=== PATIENT | male | born 1950 | race Caucasian/White ===

== ENCOUNTER 2019-03-17 09:19 | Inpatient (IN) ==
--- NOTE | 2019-03-17 09:34 | PROVIDER DOCUMENTATION ---
HPI-General Adult - General Chief Complaint: Rib Pain Stated Complaint: PAIN Time Seen by Provider: 03/17/19 09:22 Source: patient Allergies/Adverse Reactions: Patient Allergies Allergy/AdvReac Type Severity Reaction Status Date / Time No Known Allergies Allergy Verified 03/17/19 09:32 Home Medications: Home Medication List Medication Instructions Recorded Confirmed Last Taken Type Apixaban [Eliquis] 5 mg PO BID 03/17/19 03/17/19 Unknown History Benazepril/Hydrochlorothiazide 1 ea PO DAILY 03/17/19 03/17/19 Unknown History [Lotensin Hct 10-12.5 mg Tablet] Hydroxyurea 500 mg PO DAILY 03/17/19 03/17/19 Unknown History - History of Present Illness -Gen Adult Nature of Presenting Problems: Pt. is 69 yom that presents with c/o Left side rib pain that began on Saturday. He reports recently being on flight from [place] to [place]. He denies any injury but reports a mild intermittent cough. He states the pain is sharp and hurts to move or lie down. He denies any other complaints. Location of Pain/Injury: reports: chest (Left rib pain). denies: none, head, face, mouth, neck, upper extremity, hand(s), abdomen, back, pelvis, genitalia, lower extremity, feet, upper body, lower body, generalized, other Pain Radiation: reports: no radiation. denies: arm(s), back, buttocks, chest, epigastric, feet, groin, jaw, flank (L), legs (lower), LLQ, LUQ, neck, periumbilical, flank (R), RLQ, RUQ, shoulder(s), scapula, scrotal, sternal notch, suprapubic, legs (upper), urethral, vaginal, other Quality of Pain: reports: sharp, stabbing. denies: burning, pressure, tightness Severity: reports: moderate. denies: mild, severe Onset/Duration: reports: gradual, 3 days ago Timing: reports: still present, intermittent. denies: improving, constant, getting worse Context/Activities at Onset: reports: none. denies: light activity, moderate activity, vigorous activity, recent emotional stress, recent physical stress, recent trauma history, possible bad food, cold exposure, eating, out of country travel, rest, sleep, sexual activity, other Modifying Factors: improves with: immobilization. worse with: breathing, coughing, movement, palpation Associated Symptoms: reports: pain with inspiration. denies: denies symptoms, anxiety, arm pain, back/neck pain, chest pain, constipation, cough, diaphoresis, diarrhea, dizziness, EENT symptoms, fatigue, fever/chills, genitourinary problems, headaches, heartburn, joint pain, loss of appetite, malaise, muscle aches, sinus congestion/drainage, nausea, rash, seizure, shortness of breath, sensory/motor loss, swelling/mass in abdomen, syncope, vomiting, weakness, trouble walking, other Similar Symptoms Previously?: Yes Recently seen or treated by another doctor?: No Review of Systems - Adult - REVIEW OF SYSTEMS - ADULT Constitutional: reports: no symptoms reported Eyes: reports: no symptoms reported Ears, Nose, Mouth & Throat: reports: no symptoms reported Cardiovascular: reports: no symptoms reported Respiratory: reports: see HPI, cough, pleurisy. denies: chronic cough, dyspnea on exertion, shortness of breath Gastrointestinal: reports: no symptoms reported Genitourinary: reports: no symptoms reported Musculoskeletal: reports: no symptoms reported Integumentary: reports: no symptoms reported Neurological: reports: no symptoms reported Psychiatric: reports: no symptoms reported Past History - Adult - PAST MEDICAL HISTORY-ADULT Review of Records: reports: Old Records Reviewed, Nursing Assessment Review, Medications Reviewed, Social history reviewed & non-contributory. Major Childhood Illnesses: reports: denies history - PRIOR SURGERIES/PROCEDURES Surgical/Procedure History: reports: none - IMMUNIZATION STATUS Childhood Immunizations: See Nurse Assessment Flu Vaccine: See Nurse Assessment - FAMILY HISTORY Family History: reviewed, not pertinent - SOCIAL HISTORY Smoking: quit greater than 1 year Physical Exam-General - PHYSICAL EXAM-ADULT Initial Vital Signs Reviewed: Yes - CONSTITUTIONAL General Appearance: alert, no apparent distress, thin. negative: anxious, slow to respond, obtunded, combative - EYES Eyes: PERRL/EOMI, pink conjunctivae - HEAD, EARS, NOSE, MOUTH & THROAT HENMT: normocephalic/atraumatic, moist mucous membranes - NECK Neck: non-tender, full range of motion, supple, normal inspection - RESPIRATORY Respiratory: lungs clear, normal breath sounds, pain on inspiration. negative: crackles, rales, rhonchi, stridor, wheezing - CARDIOVASCULAR Cardiovascular: normal peripheral pulses, regular rate, rhythm - GASTROINTESTINAL (ABDOMEN) Abdominal Exam: normal bowel sounds, non tender, soft - LYMPHATIC Lymphatic: no adenopathy - MUSCULOSKELETAL Back Exam: normal inspection, no CVA tenderness, no vertebral tenderness Extremity: normal range of motion, non-tender, normal gait, normal inspection Peripheral Pulses: radial (R): 2+, radial (L): 2+ - SKIN Integumentary: normal color, normal turgor, warm/dry - NEUROLOGIC Neurologic: grossly normal, no motor/sensory deficits - PSYCHIATRIC Psych/Mental Status: normal mood/affect, normal thought content, normal thought process, oriented x 3. negative: anxious, paranoid, tearful Progress - PLAN OF CARE/RESULTS Progress/Plan/Lab Results: Vital Signs - 8 hr 03/17/19 09:25 Temperature 97.6 F Pulse Rate 117 H Respiratory Rate 19 Blood Pressure 128/87 O2 Sat by Pulse Oximetry 96 Orders Category Date Time Status RIBS UNILAT W/PA CHEST LEFT [RAD] Stat Exams 03/17/19 09:30 Ordered CBC WITH ELECTRONIC DIFF [HEME] Stat Lab 03/17/19 09:29 Uncollected CK PROFILE [SP CHEM] Stat Lab 03/17/19 09:29 Uncollected COMPREHENSIVE METABOLIC PANEL [CHEM] Stat Lab 03/17/19 09:29 Uncollected TROPONIN T Stat Lab 03/17/19 09:29 Uncollected EKG [EKG] Stat Ther 03/17/19 09:29 Ordered Result Diagrams: 03/17/19 09:38 03/17/19 09:38 - EKG 1 Time of EKG reading by physician:: 10:26 EKG Read and Signed by:: Wan Centeno EKG Interpretation (*Must complete 3 of following elements*): Abnormal Rate: 109 Rhythm: Sinus tach - XRAY 1 XRAY: Left XRAY Study: Chest ([facility] - [address] , [address] [address] [facility] - [address] [place] [address] Department of Imaging Patient: ETHEL BLOCK JR IRAADM Date: 03/17/19MR#: [id number] : 9ADM Status: REG ERAcct#: [id number] Age/Sex: 69/MRoom/Bed: Loc: ED Ordering Physician: Remy Coyle Family Physician: KRISTIE ROSS Reason for Procedure: left rib pain Signed RIBS UNILAT W/PA CHEST LEFT - 03/17/2019 INDICATION: left rib pain TECHNIQUE: Five views COMPARISON: 06/18/2018 FINDINGS: There is a small focal infiltrate or area of scarring in the right upper lobe that is new from prior. The left-sided ribs are intact and normally mineralized. IMPRESSION: Left sided ribs are intact. Small focal infiltrate or area of scarring in the right lung apex new from prior exams. Electronically signed by Andrew Garnett 03/17/2019 10:10 AM 03/17/19 1010 Interpreting Physician: Andrew Garnett MD Dictated Date/Time: 03/17/19 1008 cc: Remy Coyle; KRISTIE ROSS), Ribs XRAY Interpretation: See note - CONSULTS/PCP/HOSPITALIST Notification #1 *Consult/PCP/Hospitalist*: Alondra Yeh Time Discussed: 11:42 Reason/Comments: Admission Consult Disposition: Will see in ED, Admit Departure - Departure Date of Disposition Decision: 03/17/19 Time of Disposition Decision: 10:44 DIAGNOSIS: Hyponatremia, Hyperglycemia Pneumonia Qualifiers: Pneumonia type: due to unspecified organism Laterality: unspecified laterality Lung location: unspecified part of lung Qualified Code(s): J18.9 - Pneumonia, unspecified organism Leukocytosis Qualifiers: Leukocytosis type: unspecified Qualified Code(s): D72.829 - Elevated white blood cell count, unspecified Disposition: ADMITTED INPATIENT 09 Certified Medical Emergency: Emergent Condition: Stable Referrals and Follow-Ups: VANDANA,KRISTIE L., FORENSIC PATHOLOGIST [Primary Care Provider] - - Critical Care Note This patient required my direct & personal management of CC.: No Attestation - Physician/ PAOLA Attestation Patient care was provided by Advanced Practice Provider:: Yes Advanced Practice Provider:: Remy Coyle Advanced Practice Provider documentation review:: The Mid-level provider documentation, treatment plan and medical decision making was reviewed by the physician who agrees with all treatment and medical decision making by the MLP. The physician spent face to face time with patient:: No Advanced Practice Provider documentation review:: Supervising physician onsite and consulted in the evaluation and care of this patient. The physician did not have a face to face encounter with the patient.
[2019-03-17 09:55] LABS: BASO# 0.06 X1000 (0.0-0.2); BASO% 0.4 % (0.0-0.8); EOS# 0.08 X1000 (0.0-0.7); EOS% 0.5 % (0.0-10.0); HEMATOCRIT 42.6 % (42.0-52.0); HEMOGLOBIN 13.6 g/dL (14.0-18.0); IMM GRAN# 0.14 X1000 (0.0-0.04); IMM GRAN% 0.8 % (0.0-0.5); LYMPH# 1.67 X1000 (1.2-3.4); MCH 29.4 PG (27-31); MCHC 31.9 g/dL (33-37); MCV 92.2 FL (81-99); MONO# 2.31 X1000 (0.11-0.59); MONO% 13.9 % (1.7-9.3); MPV 9.1 FL (7.4-10.4); NEUT# 12.38 X1000 (1.4-6.5); NEUT% 74.4 % (42.2-75.2); PLT 556 X1000 (130-400); RBC 4.62 XMIL (4.7-6.1); RDW 15.7 % (11.5-14.5); WBC 16.64 X1000 (4.8-10.8)
--- NOTE | 2019-03-17 10:12 | Diag Imaging Result Doc PS360 ---
RIBS UNILAT W/PA CHEST LEFT - 03/17/2019 INDICATION: left rib pain TECHNIQUE: Five views COMPARISON: 06/18/2018 FINDINGS: There is a small focal infiltrate or area of scarring in the right upper lobe that is new from prior. The left-sided ribs are intact and normally mineralized. IMPRESSION: Left sided ribs are intact. Small focal infiltrate or area of scarring in the right lung apex new from prior exams. Electronically signed by Andrew Garnett 03/17/2019 10:10 AM
--- NOTE | 2019-03-17 10:23 | EKG Report ---
Test Performed on : 03/17/2019 09:54:00 AM Test Reason : RIB PAIN Blood Pressure : / mmHG Vent. Rate : 109 BPM Atrial Rate : 109 BPM P-R Int : 154 ms QRS Dur : 068 ms QT Int : 326 ms P-R-T Axes : 070 048 054 degrees QTc Int : 439 [address]. Junctional [address] depression, probably normal Borderline ECG When compared with ECG of 24-SEP-2017 09:10, Criteria for Septal infarct are no longer present Unconfirmed Result
[2019-03-17 10:31] LABS: ESTIMATED GFR > 60
[2019-03-17] MEDS ORDERED: ROCEPHIN 1 GM in NS 50 ML IV ONE (10:33)
[2019-03-17 10:39] LABS: AGAP 16; ALB/GLOB RATIO 1.2; ALBUMIN 3.9 g/dL (3.5-5.0); ALKALINE PHOSPHATASE 133 U/L (32-122); BUN 6 mg/dL (8-22); CALCIUM 9.4 mg/dL (8.8-10.2); CHLORIDE 89 mmol/L (98-107); CK PROFILE 26 U/L (24-204); COSMO 261; CREATININE 0.9 mg/dL (0.7-1.2); GLUCOSE 149 mg/dL (70-104); GOT 19 U/L (10-34); GPT 8 U/L (10-44); POTASSIUM 3.9 mmol/L (3.5-5.1); SODIUM 130 mmol/L (136-145); TCO2 25 mmol/L (25-35); TOTAL BILIRUBIN 0.81 mg/dL (0.20-1.00); TOTAL PROTEIN 7.2 g/dL (6.3-8.3)
[2019-03-17] MEDS ORDERED: ZITHROMAX 500 MG/NS 500 MG/250 ML IVPB IV ONE (10:45)
[2019-03-17 10:57] LABS: INR 1.41; PROTIME 17.5 Seconds (11.0-16.0)
[2019-03-17 10:58] LABS: PTT 35.6 Seconds (22.3-41.8)
[2019-03-17 11:12] LABS: URINE SOURCE CLEAN CATCH
[2019-03-17 11:17] LABS: BILIRUBIN URINE NEGATIVE (NEGATIVE); BLOOD URINE NEGATIVE (NEGATIVE); COLOR YELLOW; GLUCOSE URINE NEGATIVE (NEGATIVE); KETONE URINE TRACE mg/dL (NEGATIVE); LEUKOCYTES URINE NEGATIVE (NEGATIVE); NITRITE URINE NEGATIVE (NEGATIVE); PROTEIN URINE TRACE mg/dL (NEGATIVE); SP GRAVITY URINE 1.018; TURBIDITY URINE CLEAR (CLEAR); UROBILINOGEN URINE NORMAL (NORMAL)
[2019-03-17 11:19] LABS: UR EPITHELIAL CELLS <10 /HPF (<10); URINE BACTERIA NEGATIVE /HPF; URINE RBC <10 /HPF (<10); URINE WBC <10 /HPF (<10)
--- NOTE | 2019-03-17 11:34 | ED EKG INTERP ---
This chart was entered by Brayden Amos Scribe, acting as scribe for Wan Centeno MD. EKG Interpretation - EKG Time of EKG reading by physician:: 10:00 EKG Read and Signed by:: Wan Centeno EKG Interpretation (*Must complete 3 of following elements*): Abnormal Rate: 109 Rhythm: sinus tachycardia ST Wave: non-specific ST changes Attestation - Physician/ PAOLA Attestation Patient care was provided by Advanced Practice Provider:: No The physician spent face to face time with patient:: Yes Advanced Practice Provider documentation review:: Supervising physician onsite and consulted in the evaluation and care of this patient. The physician did have a face to face encounter with the patient. This chart was documented by the indicated scribe, (Brayden Amos Scribe) and accurately reflects the services I performed and decisions made by Taryn mariano Kent A., MD, as attested by the provider's signature.
[2019-03-17] MEDS: NS 1,000 ML IV SCH (14:55)
[2019-03-17] MEDS: DUONEB (A & A) INH SCH ×3 (15:45→23:18)
--- NOTE | 2019-03-17 19:39 | HISTORY AND PHYSICAL ---
PRIMARY CARE PROVIDER: MUKESH Malone. CHIEF COMPLAINT: Of left-sided rib pain, a cough since he took a flight from [place] to [place] recently. HISTORY OF PRESENTING ILLNESS: This is a 69-year-old male who is sitting up in the bed in presents to [facility] stating that he has had left rib pain that began Saturday. Also has noted a mild cough that is intermittent. States the pain is sharp and hurts to move or lie down. States he took a recent flight from [place] to [place] a couple weeks ago and that there was a passenger sitting next to him that was coughing and sneezing frequently throughout the flight. When he arrived to the emergency room his laboratory data showed a white blood cell count of 16.64, his sodium was 130, plasma lactate was 1.8, a left ribs with PA chest showed left-sided ribs were intact but small focal infiltrate or area of scarring on the right lung apex was new from a prior exam so he will be admitted for further evaluation and treatment. PAST MEDICAL HISTORY: Hypertension and a blood disorder. PAST SURGICAL HISTORY: Hernia repair. FAMILY HISTORY: Reviewed and noncontributory. SOCIAL HISTORY: Currently lives with family, is a former smoker. Drinks 1 to 2 beers daily and denies any illicit drug use. ALLERGIES: He has no known drug allergies. HOME MEDICATIONS: He takes Eliquis 5 mg p.o. b.i.d., Lotensin/hydrochlorothiazide 10/12.5 one p.o. daily and hydroxyurea 500 mg p.o. daily. LABORATORY DATA: Showed a white blood cell count of 16.64, hemoglobin 13.6, hematocrit 42.6, platelets 556,000, PT and INR of 17.5 and 1.41. Sodium 130, potassium 3.9, chloride 89, CO2 25, BUN of 6, creatinine 0.9, glucose 149. Cardiac enzyme was negative. Plasma lactate of 1.8. Urinalysis was negative. A rib with PA chest left showed left-sided ribs are intact. A small focal infiltrate or area of scarring in the right lung apex was new from prior exam. EKG showed a sinus tachycardia at 109. REVIEW OF SYSTEMS: He denied any fever, chills, blurred vision, dizziness, chest pain. He did have a mild cough, left-sided rib pain. Denied any abdominal pain, constipation, diarrhea, burning or hurting with urination. PHYSICAL EXAMINATION: On arrival he had a temperature of 97.6 degrees, pulse 117, respirations 19, blood pressure 128/87, saturating 96% on room air. GENERAL: This is a 69-year-old male who is sitting up in the bed and answers questions appropriately. HEENT: Normocephalic, atraumatic. Normal ENT inspection. Oropharynx and nares are clear. Pupils are equal, round, reactive to light, accommodation. Extraocular movements are intact. NECK: Normal inspection, normal range of motion. LUNGS: With decreased breath sounds to bilateral lower bases. Equal lung expansion, chest wall movement noted. There is some pain to palpation on the left side of his ribs. HEART: Regular rate and rhythm. No murmurs, rubs, or gallops. ABDOMEN: Soft, nontender, nondistended. Bowel sounds are present x4 quadrants. MUSCULOSKELETAL: He had 5/5 strength x4 extremities. NEUROLOGICAL: Cranial nerves 2-12 appear grossly intact. ASSESSMENT: 1. A right lower lobe pneumonia. 2. Leukocytosis. 3. Left-sided rib pain . 4. Hyponatremia. PLAN: He will be admitted to the medical unit placed on telemetry, O2 per protocol, incentive spirometry, DuoNeb q.4 hours. Continue his home medications. Place on normal saline at 75 mL an hour, Rocephin 1 gram IV q.24, azithromycin 500 IV q.24, recheck CBC, BMP in the a.m. Blood cultures x2 are pending and further orders after seen by attending. Dictated by MUKESH Guerrier for Chencho Yeh MD cc: MUKESH Malone MD
[2019-03-17] MEDS: ELIQUIS PO SCH (20:45)
[2019-03-17] MEDS ORDERED: TYLENOL PO PRN (23:32)
[2019-03-17] MEDS ORDERED: ZOFRAN IV PRN (23:32)
[2019-03-18] MEDS: DUONEB (A & A) INH SCH ×5 (03:39→21:31)
[2019-03-18] MEDS: NS 1,000 ML IV SCH ×2 (04:33→22:57)
--- NOTE | 2019-03-18 06:23 | HISTORY AND PHYSICAL ---
ADDENDUM: Briefly, this is a 69-year-old male presenting with shortness of breath and chest discomfort[place] [address], right lower lobe pneumonia. We will treat him with empiric antibiotics and follow closely. Breathing treatments, pulmonary toilet, and monitor. cc: Chencho Yeh MD
[2019-03-18] MEDS ORDERED: HYDROCHLOROTHIAZIDE PO SCH (09:00)
[2019-03-18] MEDS: HYDREA PO SCH (09:03)
[2019-03-18] MEDS: LOTENSIN PO SCH (09:04)
[2019-03-18] MEDS: ELIQUIS PO SCH ×2 (09:04→22:00)
[2019-03-18 09:11] LABS: BASO# 0.05 X1000 (0.0-0.2); BASO% 0.3 % (0.0-0.8); EOS# 0.08 X1000 (0.0-0.7); EOS% 0.5 % (0.0-10.0); HEMATOCRIT 38.4 % (42.0-52.0); HEMOGLOBIN 12.1 g/dL (14.0-18.0); IMM GRAN# 0.16 X1000 (0.0-0.04); LYMPH# 1.32 X1000 (1.2-3.4); LYMPH% 8.2 % (20.5-51.1); MCH 29.2 PG (27-31); MCHC 31.5 g/dL (33-37); MCV 92.5 FL (81-99); MONO# 1.67 X1000 (0.11-0.59); MONO% 10.3 % (1.7-9.3); MPV 9.1 FL (7.4-10.4); NEUT# 12.88 X1000 (1.4-6.5); NEUT% 79.7 % (42.2-75.2); PLT 635 X1000 (130-400); RBC 4.15 XMIL (4.7-6.1); RDW 15.7 % (11.5-14.5); WBC 16.16 X1000 (4.8-10.8)
[2019-03-18 09:37] LABS: AGAP 16; BUN 5 mg/dL (8-22); CALCIUM 8.7 mg/dL (8.8-10.2); CHLORIDE 92 mmol/L (98-107); COSMO 261; CREATININE 0.6 mg/dL (0.7-1.2); ESTIMATED GFR > 60; GLUCOSE 114 mg/dL (70-104); POTASSIUM 3.6 mmol/L (3.5-5.1); SODIUM 131 mmol/L (136-145); TCO2 23 mmol/L (25-35)
[2019-03-18] MEDS: ROCEPHIN 1 GM in NS 50 ML IV SCH (11:33)
[2019-03-18] MEDS: ZITHROMAX 500 MG/NS 500 MG/250 ML IVPB IV SCH (12:50)
--- NOTE | 2019-03-18 18:38 | PROGRESS NOTE ---
DATE: 03/18/2019 SUBJECTIVE: Patient has no major complaints. OBJECTIVE: Vital signs: Blood pressure 110/63, heart rate of 113, respiratory rate of 18, temperature 98.4 degrees, 96% on room air. Cardiovascular: Regular rate and rhythm. Pulmonary: Bilateral breath sounds clear to auscultation. Gastrointestinal: Soft, nontender, nondistended. Bowel sounds are positive. Extremity Exam: No clubbing or cyanosis. Lymphatic exam: No peripheral edema. Neurological Exam: Nonfocal. LABORATORY DATA: White count is still 16,000, hemoglobin and hematocrit 12 and 38, platelets 635,000. Basic was normal. Sodium still a little bit low at 131. PROBLEM LIST: 1. Right lower lobe pneumonia. This was actually just seen on rib films, not even a dedicated PA and lateral. Currently on Rocephin and azithromycin, but white count has not budged, so I am going to get a CT scan of the chest. We may need to adjust medications otherwise. Now patient is on Hydrea, which I am wondering if he has CLL. His white counts have been high before, 14,000, so I am not entirely sure what is causing that. 2. Hyponatremia. That seems to be a little bit better. We will check urine electrolytes. Actually, it really has not changed that much, but it is probably due to hydrochlorothiazide. We will stop that and check urine lytes and follow. DISPOSITION: Pending clinical status. He would like to go home tomorrow if things stabilize. cc: Chencho Yeh MD
--- NOTE | 2019-03-18 21:24 | Diag Imaging Result Doc PS360 ---
EXAM: CT THORAX W/CONTRAST 03/18/2019 HISTORY: pneumonia TECHNIQUE: This exam was performed using automated exposure control, adjustment of mA or kV according to patient size, and/or use of iterative reconstruction technique. COMMENT: There are no previous studies. The aorta is not distended and there is no evidence of dissection. There are no filling defects in the pulmonary arteries. There is no evidence of significant adenopathy. There are calcifications in the left coronary artery. There is a small amount of fluid in the posterior costophrenic sulci bilaterally. There is minimal atelectasis in the left lower lobe posterior costophrenic sulcus and somewhat more atelectasis on the right side. There is also apparent compressive atelectasis in the right middle lobe. There is an ill-defined pleural-based opacity laterally in the left upper lobe around image 51. There is a cavitary lesion in the right apex measuring 2.1 cm in diameter. This is associated with some fibrotic appearing opacities extending inferiorly and towards the apical pleura. There are small stones layering dependently in the gallbladder. There are some degenerative disc changes in the thoracic spine. There is no evidence of acute bony abnormality. IMPRESSION: Possible minimal pneumonia in the left upper lobe inferiorly laterally. 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 This may represent a granulomatous cavity, however the possibility of neoplasm cannot be excluded and comparison with previous studies is recommended. Electronically signed by Andrew Nelson 03/18/2019 9:21 PM
[2019-03-19] MEDS: NS 1,000 ML IV SCH (04:16)
[2019-03-19 07:25] LABS: BASO# 0.08 X1000 (0.0-0.2); BASO% 0.8 % (0.0-0.8); EOS# 0.44 X1000 (0.0-0.7); EOS% 4.2 % (0.0-10.0); HEMATOCRIT 34.3 % (42.0-52.0); HEMOGLOBIN 10.7 g/dL (14.0-18.0); IMM GRAN# 0.13 X1000 (0.0-0.04); IMM GRAN% 1.2 % (0.0-0.5); LYMPH# 1.19 X1000 (1.2-3.4); LYMPH% 11.4 % (20.5-51.1); MCH 28.9 PG (27-31); MCHC 31.2 g/dL (33-37); MCV 92.7 FL (81-99); MONO# 1.54 X1000 (0.11-0.59); MONO% 14.7 % (1.7-9.3); MPV 8.7 FL (7.4-10.4); NEUT% 67.7 % (42.2-75.2); PLT 687 X1000 (130-400); RDW 15.8 % (11.5-14.5); WBC 10.48 X1000 (4.8-10.8)
[2019-03-19 07:38] LABS: AGAP 12; BUN 3 mg/dL (8-22); CALCIUM 8.4 mg/dL (8.8-10.2); CHLORIDE 97 mmol/L (98-107); COSMO 265; CREATININE 0.5 mg/dL (0.7-1.2); ESTIMATED GFR > 60; GLUCOSE 104 mg/dL (70-104); POTASSIUM 3.6 mmol/L (3.5-5.1); SODIUM 134 mmol/L (136-145); TCO2 25 mmol/L (25-35)
[2019-03-19] MEDS: HYDREA PO SCH (08:33)
[2019-03-19] MEDS: ELIQUIS PO SCH ×2 (08:33→21:15)
[2019-03-19] MEDS: LOTENSIN PO SCH (08:33)
[2019-03-19] MEDS: DUONEB (A & A) INH SCH (10:06)
[2019-03-19] MEDS: ROCEPHIN 1 GM in NS 50 ML IV SCH (11:15)
[2019-03-19] MEDS: ZITHROMAX 500 MG/NS 500 MG/250 ML IVPB IV SCH (12:37)
[2019-03-19] MEDS ORDERED: NS NEB INH SCH (14:45)
[2019-03-19] MEDS: ATROVENT NEB INH SCH ×2 (16:17→22:57)
[2019-03-19] MEDS: XOPENEX NEB INH SCH ×2 (16:18→22:58)
--- NOTE | 2019-03-19 17:28 | PROGRESS NOTE ---
DATE: 03/19/2019 SUBJECTIVE: Patient has no major complaints. He really just wants to go home. OBJECTIVE: Vital Signs: Blood pressure 111/68, heart rate of 107, respiratory rate 18, temperature 98.3 degrees, and oxygen saturation is 96% on room air. Cardiovascular: Regular rate and rhythm. Pulmonary: Bilateral breath sounds, clear to auscultation. Gastrointestinal: Soft, nontender, nondistended. Bowel sounds are positive. He seems to be breathing okay. LABORATORY DATA: White count is down to 10, hemoglobin and hematocrit are 10 and 34, platelets 687,000. Basic looked okay. PROBLEM LIST: 1. Right lower lobe pneumonia. This is just seen on plain films. CT though shows a little bit of possible pneumonia, but he has got a cavitary lesion in his right upper lobe, which is unknown. He does not know anything about it. He reports no history of tuberculosis. I am not sure if this is MAC or something else. We will get a pulmonary consult and follow. 2. Hyponatremia. That has improved with fluids. 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 He is on benazepril, and he is on hydrochlorothiazide, so we will see what those show. 3. Disposition. I think clinically he has improved. I think this site may need to be biopsied. We will get the opinion of Dr. Sue and his team, and we will continue to follow. Currently he is on Rocephin, azithromycin, which we will continue for the time being. cc: Chencho Yeh MD
--- NOTE | 2019-03-19 23:50 | CONSULTATION ---
DATE OF CONSULTATION: 03/19/2019 REQUESTING PROVIDER: Dr. Fransisco Yeh. REASON FOR CONSULTATION: Cavitary lesion. HISTORY OF PRESENT ILLNESS: This is a 69-year-old male with a medical history of hypertension, left lower extremity DVT and chronic thrombocytosis. He presented to the ER in the morning of 03/17/2019 with left side rib pain for 3 days. Initial workup in the ER also revealed a right lower lobe pneumonia, hyponatremia and leukocytosis. He has been admitted since then to the medical floor for further evaluation and management. CT thorax with contrast on 03/18/2019 showed possible minimal pneumonia in the left upper lobe inferolaterally, apical, pleural and parenchymal fibrosis with cavitary lesion. This may represent a granulomatous cavity. However, the possibility of neoplasm cannot be excluded and the comparison with previous studies is recommended. The patient has been treated with Rocephin and azithromycin and today the leukocytosis is resolved. Currently, patient is lying in bed with no acute distress noted. He is on room air and tolerates well. No shortness of breath noted. The patient reports he is feeling a lot better. The pain on the left side has been improved. He reports some mild dry cough recently, which has been improved. He has no fever, chills, nausea, vomiting, bowel habit change, wheezing, dizziness, lightheadedness, paroxysmal nocturnal dyspnea, pedal edema, witnessed snoring, noticeable weight change, or urination discomfort. PAST MEDICAL HISTORY: 1. Hypertension. 2. History of left lower extremity DVT, on Eliquis therapy. 3. Thrombocytosis. Follow up with Dr. Eng outpatient monthly. PAST SURGICAL HISTORY: 1. Hernia repair. 2. EGD with biopsy of antrum and biopsy of gastroesophageal junction in November 2017, together with colonoscopy with snare polypectomy at 40 cm. FAMILY HISTORY: Positive for melanoma, heart disease and Alzheimer disease. SOCIAL HISTORY: Patient lives at home with his family. He used to smoke 1-1/2 to 2 packs per day since age of 17 and he quit more than 5 years ago. He drinks 1 to 2 beers daily for a long time. He has no illicit drug use. ALLERGIES: No known drug allergies. REVIEW OF SYSTEMS: A 10-point review of systems was conducted and the pertinent's listed within the HPI, otherwise noncontributory. PHYSICAL EXAMINATION: Vital Signs: Temperature 98.3, blood pressure 111/68, pulse 107, respiratory rate 18, oxygen saturation 96% on room air. General: Well-nourished, well-developed, lying in bed with no acute distress noted. HEENT: Atraumatic, normocephalic. Trachea midline. Mucosa pink and moist. Musculoskeletal: There is an irregular dark brown skin abnormality around the right upper shoulder area. The patient reported that it has been growing slowly. Respiratory: Even and unlabored. Symmetrical excursion. Clear to auscultation bilaterally. Cardiovascular: Regular rate and rhythm. Gastrointestinal: Soft, nontender, nondistended. Normoactive bowel sounds in all 4 quadrants. Extremities: No pedal edema. No cyanosis. No clubbing. Dorsalis pedis 2+ bilaterally. Neurologic: Alert and oriented x4. Speech fluent. Follows commands. LAB DATA: White blood cells 10.48, hemoglobin 10.7, hematocrit 34.3, platelets 687,000. Sodium 134, potassium 3.6, chloride 97, carbon dioxide 25, BUN 3, creatinine 0.5. Glucose 104. IMAGING DATA: See CT scan resides on 03/18/2019 in [facility]. ASSESSMENT: This is a 69-year-old male with a medical history of hypertension, left lower extremity deep venous thrombosis and chronic thrombocytosis. He has been admitted since 03/17/2019 with left-sided rib pain, a right-sided lower lobe pneumonia, leukocytosis, and hyponatremia. 1. Possible minimal pneumonia in the left upper lobe inferolaterally. 2. 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 3. Chronic thrombocytosis. 4. Left-sided rib pain, improving. PLAN: 1. Consider outpatient imaging follow-up within 2 to 3 months. 2. Continue current antibiotic and bronchodilators. 3. Follow up with CBC, BMP, blood culture, sputum culture, and QuantiFERON results. 4. Further recommendations pending hospital course. Thank you for the courtesy of this consult. Dictated by MUKESH Barnett for Gideon Sue MD cc: MUKESH Barnett MD
[2019-03-20] MEDS: NS 1,000 ML IV SCH ×2 (03:27→13:50)
[2019-03-20 07:51] LABS: BASO# 0.07 X1000 (0.0-0.2); BASO% 0.7 % (0.0-0.8); EOS# 0.43 X1000 (0.0-0.7); EOS% 4.5 % (0.0-10.0); HEMATOCRIT 36.1 % (42.0-52.0); HEMOGLOBIN 11.1 g/dL (14.0-18.0); IMM GRAN# 0.14 X1000 (0.0-0.04); IMM GRAN% 1.4 % (0.0-0.5); LYMPH# 1.21 X1000 (1.2-3.4); LYMPH% 12.5 % (20.5-51.1); MCH 28.8 PG (27-31); MCHC 30.7 g/dL (33-37); MCV 93.8 FL (81-99); MONO# 1.15 X1000 (0.11-0.59); MONO% 11.9 % (1.7-9.3); MPV 8.8 FL (7.4-10.4); NEUT# 6.66 X1000 (1.4-6.5); PLT 771 X1000 (130-400); RBC 3.85 XMIL (4.7-6.1); RDW 15.7 % (11.5-14.5); WBC 9.66 X1000 (4.8-10.8)
[2019-03-20] MEDS: XOPENEX NEB INH SCH (07:55)
[2019-03-20] MEDS: ATROVENT NEB INH SCH (07:56)
[2019-03-20 07:59] LABS: AGAP 14; BUN 3 mg/dL (8-22); CALCIUM 8.7 mg/dL (8.8-10.2); CHLORIDE 101 mmol/L (98-107); COSMO 272; CREATININE 0.5 mg/dL (0.7-1.2); ESTIMATED GFR > 60; GLUCOSE 91 mg/dL (70-104); POTASSIUM 3.9 mmol/L (3.5-5.1); SODIUM 138 mmol/L (136-145); TCO2 23 mmol/L (25-35)
[2019-03-20] MEDS: ELIQUIS PO SCH (09:25)
[2019-03-20] MEDS: HYDREA PO SCH (09:25)
[2019-03-20] MEDS: LOTENSIN PO SCH (09:25)
--- NOTE | 2019-03-20 10:36 | PROVIDER PROGRESS NOTE ---
Progress Note Pulmonary additional note: Best route for CT finding is out patient PET and serial imaging. The lesion has scarring features around emphysematous change. The location is challenging to tissue sampling options of bronchoscopy and CT biopsy.
[2019-03-20] MEDS ORDERED: ZITHROMAX PO SCH (12:00)
[2019-03-20 12:20] VITALS: BP 102/55
[2019-03-20] MEDS: ROCEPHIN 1 GM in NS 50 ML IV SCH (12:40)
--- NOTE | 2019-03-21 14:47 | DISCHARGE SUMMARY ---
ADMISSION DATE: 03/17/2019 DISCHARGE DATE: 03/20/2019 SUBJECTIVE: The patient has no major complaints. DISCHARGE DIAGNOSES: 1. Community-acquired pneumonia granulomatous cavitary lesion and a history of tobacco abuse. 2. Hyponatremia. CONSULTATIONS: Pulmonary. PROCEDURES: None. HISTORY AND HOSPITAL COURSE: This is a 69-year-old male presenting with shortness of breath. This happened after a plane trip actually. [place] had coughing [place]ezing[place] [address], sodium was 130. He was found to have a right lower lobe pneumonia. He was placed on Rocephin and azithromycin and improved fairly quickly. 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 He had no history of neoplasm. No history of tuberculosis exposure. QuantiFERON has been ordered but has not been processed. I got a Pulmonary consult and they recommended that he just needs close follow-up, but that he did not need to pursue anything immediate from that standpoint. His white count came down to 9.6. His vital signs were stable, he is afebrile, 96% on room air, so he was felt stable for discharge on the . DISCHARGE MEDICATIONS: Eliquis 5 b.i.d., hydroxyurea 500 daily, benazepril hydrochlorothiazide 10/12.5 daily. I am going to switch him to just plain old benazepril because hydrochlorothiazide may be affecting his sodium. Omnicef 300 p.o. b.i.d. for 7 days, Ventolin 2 puffs t.i.d. for 7 days then p.r.n., Zithromax 250 for another 3 days. FOLLOWUP: He will need a follow-up chest CT per Pulmonary in the next month. He is to follow up with them to get that analyzed. TIME SPENT: A 32 minute discharge. cc: MD Gideon Flood MD Natalie McCay
== END 2019-03-20 15:10 | disposition home or self-care (01) | DRG 871 ==
LOC: SUPCPDRO → ED 09:19 → EDIPHOLD 12:14 → 3N 14:01
PROVIDERS: ATTEND Internal Medicine